=== PATIENT | female | born 1990 | race Caucasian/White ===

== ENCOUNTER 2024-06-06 19:12 | Emergency (ER) | payer BC, SELFPAY ==
--- NOTE | ~2024-06-06 | CT_ITS ---
CLINICAL HISTORY: right flank pain CT abdomen and pelvis without contrast Comparison: None Findings: No consolidation or effusion. The gallbladder and solid organs are within normal limits. No renal stones. No hydronephrosis or hydroureter. Minimal fullness of the right renal pelvis present. No bowel obstruction, pneumoperitoneum, or pneumatosis. Moderate colonic stool burden. Pelvic contents unremarkable. The bladder is collapsed, limiting its evaluation. The appendix is not confidently visualized on this exam. The bones are intact. IMPRESSION: 1. No radiopaque renal calculi, hydronephrosis, or hydroureter. There is minimal fullness of the right renal pelvis which is of uncertain etiology/clinical significance. 2. Moderate colonic stool burden. No bowel obstruction. This document has been electronically signed by: Jonathan Jain MD on 06/07/2024 03:34:27
--- NOTE | 2024-06-06 19:36 | ED_ITS ---
HPI - General Adult General Chief complaint: Abdominal Pain Stated complaint: abd pain,headache Time Seen by Provider: 06/07/24 01:06 Source: patient Limitations: no limitations History of Present Illness ED Provider: Kat Raya PA-C HPI narrative: 33-year-old otherwise healthy female presents with right flank pain x1 day. Pain over right mid flank, is nonradiating and constant. Associated dysuria and increased urinary frequency. Denies fever, nausea, vomiting, obvious hematuria or history of kidney stones. Denies back pain. Related Data Previous Rx's ?Medication ?Instructions ?Recorded cephalexin 500 mg capsule 500 mg PO BID #13 caps 06/07/24 Allergies Allergy/AdvReac Type Severity Reaction Status Date / Time No Known Allergies Allergy Verified 06/06/24 19:42 Review of Systems 2 Review of Systems: Yes all other systems are reviewed and are negative Constitutional: Constitutional: Denies fatigue and Denies fever(s) Cardiovascular: Cardiovascular: Denies chest pain and Denies dyspnea Respiratory: Respiratory: Denies cough and Denies dyspnea Gastrointestinal: Gastrointestinal: Reports abdominal pain, Denies nausea and Denies vomiting Genitourinary: Genitourinary: Denies hematuria, Reports dysuria and Reports flank pain Musculoskeletal: Musculoskeletal: Denies back pain Endocrine: Endocrine: Denies fatigue PMFSH Past Medical History Attestation statement: The following information was validated with the patient. Physical Exam ED Vital Signs: Vital Signs - 24 hr 06/06/24 19:38 06/07/24 03:49 Temperature 97.5 F 98.5 F Pulse Rate 81 79 Respiratory Rate 20 16 Blood Pressure 110/68 114/71 Pulse Oximetry 98 98 Oxygen Delivery Method Room Air Room Air BMI result Body Mass Index 21.5 Const Other: Alert well-appearing Orientation/consciousness: patient oriented x3 Resp Effort & Inspection: normal respiratory effort Cardio Other: Normal peripheral perfusion GI Other: Generalized tenderness to palpation without guarding abdomen not distended Back/Spine/Pelvis Other: Right CVA tenderness Skin Other: Warm dry no rash Neuro General: patient oriented x3, gait normal, no focal motor deficits and CN's II- XI intact bilaterally Psych Other: Cooperative Course Course Course Narrative: This is a Rapid Medical Examination (RME) performed by Markus Porter PA-C in triage. Full HPI, ROS, assessment and treatment plan per primary provider in the Main ED. 33 yo female here for eval of RUQ abd pain, right flank pain, dysuria, and headache x2 days. took azo w/o improvement. no fever, chills. starting to feel nauseous. assoc increased urinary freq, urinating small amounts. + right CVAT, ttp of RUQ Plan: labs, UA, +/- imaging Medications Administered Discontinued Medications Generic Name Dose Route Start Last Admin Trade Name Allan PRN Reason Stop Dose Admin Cephalexin HCl 500 mg 06/07/24 01:08 06/07/24 01:43 Cephalexin 500 Mg Capsule PO 06/07/24 01:09 500 mg ONCE ONE Administration Sodium Chloride 1,000 mls @ 999 mls/hr 06/07/24 01:15 06/07/24 02:48 Ns IV 06/07/24 02:15 Infused .Q1H1M MECHE Infusion Ketorolac Tromethamine 15 mg 06/07/24 01:08 06/07/24 01:43 Ketorolac Tromethamine 15 Mg/Ml Vial IVPUSH 06/07/24 01:09 15 mg ONCE ONE Administration Medical Decision Making Medical Decision Making MDM Narrative: 33-year-old otherwise healthy female presents with right flank pain x1 day. Pain over right mid flank, is nonradiating and constant. Associated dysuria and increased urinary frequency. Denies fever, nausea, vomiting, obvious hematuria or history of kidney stones. Denies back pain. No chronic issues History: Per patient I have considered the following differential diagnoses: Renal colic, pyelonephritis, UTI Plan: Given distribution of discomfort in nature of symptoms, I am considering renal colic. Screening labs were obtained including your urinalysis her urine is infected. We will obtain a CT scan. This could be pyelo as well given positive CVA tenderness. However she has no nausea vomiting and she is afebrile. We will be giving Toradol, IV fluid and treating her UTI with cephalexin. I have independently reviewed the following tests: Labs: Leukocytosis noted, not anemic, not , no electrolyte abnormality, urine is infected CT abd: MPRESSION: 1. No radiopaque renal calculi, hydronephrosis, or hydroureter. There is minimal fullness of the right renal pelvis which is of uncertain etiology/clinical significance. 2. Moderate colonic stool burden. No bowel obstruction. Lab Data 06/06/24 19:50 06/06/24 19:50 Labs: Lab Results 06/06/24 06/06/24 Range/Units 19:50 20:38 WBC 13.0 H (4.8-10.8) X10*3/uL RBC 4.84 (4.20-5.50) X10*6/uL Hgb 14.2 (12.0-16.0) g/dl Hct 40.9 (37.0-47.0) % MCV 84.5 (80.0-98.0) fL MCH 29.3 (27.0-33.0) pg MCHC 34.7 (31.0-35.0) g/dl RDW 11.9 (11.0-16.0) % Plt Count 470 H (160-400) X10*3/uL MPV 8.5 L (9.4-12.3) fL Immature Gran % (Auto) 0.3 (0.0-0.4) % Neut % (Auto) 77.0 H (45-73) % Lymph % (Auto) 14.0 L (20-40) % [place] % (Auto) 7.7 (2-11) % Eos % (Auto) 0.6 (0-4) % Baso % (Auto) 0.4 (0-2) % Lymph # (Auto) 1.8 (1.2-4.9) X10*3/uL [place] # (Auto) 1.0 (0.1-1.2) X10*3/uL Eos # (Auto) 0.1 (0.0-0.4) X10*3/uL Baso # (Auto) 0.1 (0.0-0.2) X10*3/uL Abs Immat Gran (auto) 0.04 H (0.00-0.03) X10*3/uL Absolute Neuts (auto) 10.0 H (2.0-8.3) x10*3/uL Absolute Nucleated RBC 0.000 (0.0-0.012) X10*3/uL Nucleated RBC % (auto) 0.0 (0.0-0.2) /100WBC Sodium 139 (135-145) mmol/L Potassium 3.9 (3.3-5.1) mmol/L Chloride 105 (96-108) mmol/L Carbon Dioxide 26 (22-29) mmol/L Anion Gap 12 (12-20) BUN 5 L (9-16) mg/dL Creatinine 0.73 (0.5-1.4) mg/dL Estim Creat Clear Calc 93.8 Estimated GFR > 60 Random Glucose 94 (60-115) mg/dL Calcium 9.2 (8.4-10.2) mg/dL Magnesium 2.3 (1.6-2.6) mg/dL Total Bilirubin 0.3 (0.0-1.0) mg/dL Direct Bilirubin 0.1 (0.0-0.5) mg/dL AST 22 (5-31) U/L ALT 24 (0-31) U/L Alkaline Phosphatase 86 (39-117) U/L Total Protein 8.2 H (6.5-8.0) g/dL Albumin 4.4 (3.5-5.0) g/dL Lipase 24 (8-78) U/L Beta HCG, Quant < 2 mIU/mL Urine Color Dark Yellow Urine Appearance Cloudy Urine pH 7.5 (5.0-9.0) Ur Specific [place] 1.010 (1.005-1.025) Urine Protein 30 (1+) H (Neg-Trace) mg/dL Urine Glucose (UA) Negative (Negative) mg/dL Urine Ketones Negative (Negative) mg/dL Urine Blood Trace H (Negative) Urine Nitrite Positive H (Negative) Ur Leukocyte Esterase Large (3+) H (Negative) Urine RBC 6-10 H (0-2) /HPF Urine WBC >50 H (0-5) /HPF Ur Squamous Epith Cells 0-2 (0-2) /HPF Urine Bacteria Trace (None Seen) Hyaline Casts 0-2 (0-2) /LPF Discharge Plan Discharge Clinical Impression: Urinary tract infection, Constipation Patient Disposition: Home, Self-Care Instructions: Constipation (ED), Urinary Tract Infection in Women (ED) Additional Instructions: The CT scan revealed that you were considerably constipated. See home care instructions. You need to take [id number] stool softener such as Colace, twice a day. In addition use [id number]-[id number] MiraLax, 2 to 3 times a day, until you begin having multiple large volume bowel movements. You also were found to have a urinary tract infection, this is likely secondary to your concurrent constipation. Take the cephalexin as directed. Follow up with your primary care provider as needed. Prescriptions: New cephalexin 500 mg capsule 500 mg PO BID Qty: 13 0RF Stand Alone Forms: Work/School Release Print Language: Hebrew
[2024-06-06 19:38] VITALS: BP 110/68; PULSE 81; RESP 20; TEMP 36.4; O2SAT 98; BMI 21.5
[2024-06-06 19:54] LABS: MANUAL DIFF FLAG NO
[2024-06-06 19:55] LABS: Basophils Absolute Auto 0.1 X10*3/uL (0.0-0.2); Basophils Percent Auto 0.4 % (0-2); Eosinophils Absolute Auto 0.1 X10*3/uL (0.0-0.4); Eosinophils Percent Auto 0.6 % (0-4); Hematocrit 40.9 % (37.0-47.0); Hemoglobin 14.2 g/dl (12.0-16.0); Imm Gran Abs Auto 0.04 X10*3/uL (0.00-0.03); Imm Gran Pct Auto 0.3 % (0.0-0.4); Lymphocytes Absolute Auto 1.8 X10*3/uL (1.2-4.9); Mean Corpuscular HGB Conc 34.7 g/dl (31.0-35.0); Mean Corpuscular Hemoglobin 29.3 pg (27.0-33.0); Mean Corpuscular Volume 84.5 fL (80.0-98.0); Mean Platelet Volume 8.5 fL (9.4-12.3); Monocytes Percent Auto 7.7 % (2-11); Platelet Count 470 X10*3/uL (160-400); Red Blood Count 4.84 X10*6/uL (4.20-5.50); Red Cell Distribution Width 11.9 % (11.0-16.0)
[2024-06-06 20:20] LABS: Alanine Aminotransferase 24 U/L (0-31); Albumin Level 4.4 g/dL (3.5-5.0); Alkaline Phosphatase 86 U/L (39-117); Anion Gap 12 (12-20); Aspartate Amino Transferase 22 U/L (5-31); Bilirubin Direct 0.1 mg/dL (0.0-0.5); Bilirubin Total 0.3 mg/dL (0.0-1.0); Blood Urea Nitrogen 5 mg/dL (9-16); Calcium 9.2 mg/dL (8.4-10.2); Carbon Dioxide 26 mmol/L (22-29); Chloride 105 mmol/L (96-108); Creatinine Clr Calc Pharmacy 93.8; Estimated Glomerular Filt Rate > 60; Glucose Random 94 mg/dL (60-115); HCG Quantitative < 2 mIU/mL; Lipase 24 U/L (8-78); Magnesium 2.3 mg/dL (1.6-2.6); Potassium 3.9 mmol/L (3.3-5.1); Sodium 139 mmol/L (135-145); Total Protein 8.2 g/dL (6.5-8.0)
[2024-06-06 20:49] LABS: Appearance Urine Cloudy; Color Urine Dark Yellow; Glucose Urine UA Negative (Negative); Leukocyte Esterase Urine Large (3+) (Negative); Nitrite Urine Positive (Negative); PH 7.5 (5.0-9.0); UMIC TRIGGER UACC YES; Urine Blood Trace (Negative); Urine Ketones Negative (Negative); Urine Protein 30 (1+) mg/dL (Neg-Trace)
[2024-06-06 20:51] LABS: Bacteria Urine Trace (None Seen); Hyaline Casts Urine 0-2 /LPF (0-2); Squamous Epithelial Cell Urine 0-2 /HPF (0-2); UACC Culture Trigger YES; WBC Urine >50 /HPF (0-5)
[2024-06-07] MEDS: 0.9 % Sodium Chloride 1,000 ML 999 ML IV (01:43)
[2024-06-07] MEDS: cephALEXin 500 MG CAPSULE PO (01:43)
[2024-06-07] MEDS: Ketorolac Tromethamine 15 MG/ML VIAL IVPUSH (01:43)
[2024-06-07 03:49] VITALS: BP 114/71; PULSE 79; RESP 16; TEMP 36.9; O2SAT 98
[2024-06-07 04:18] VITALS: BP 114/71; PULSE 79; RESP 16; TEMP 36.9; O2SAT 98
== END 2024-06-07 04:19 | disposition home or self-care (01) ==
PROVIDERS: Physician Assistant Medical; Emergency Provider Emergency Medicine
DX: N39.0 Urinary tract infection, site not specified (principal); K59.00 Constipation, unspecified; R11.0 Nausea; R10.11 Right upper quadrant pain; R51.9 Headache, unspecified; R30.0 Dysuria; R35.0 Frequency of micturition; R10.2 Pelvic and perineal pain
CPT/HCPCS: 36415; 74176; 80048; 80076; 81001; 83690; 83735; 84702; 85025; 87086; 87088; 87186; 96361; 96374; 99284; J1885

== ENCOUNTER → 2024-06-07 01:07 | Outpatient (BNV) | payer BC, SELFPAY | PROVIDERS: Emergency Provider Emergency Medicine; Visit Provider Radiology Diagnostic Radiology | DX: R10.9 Unspecified abdominal pain (principal) | CPT/HCPCS: 74176 ==